=== PATIENT | male | born 1950 | race Caucasian/White ===

== ENCOUNTER 2024-10-05 06:08 | Day surgery (SDC) | payer MEDICARE, OTHER ==
[~2024-10-05] VITALS: Ht 188 cm; Wt 97.2 kg
[2024-10-05] VITALS (12 sets, daily range): BP systolic 117–135; BP diastolic 59–66; PULSE 63–86; RESP 12–19; TEMP 97.6; O2SAT 99–100
[2024-10-05] MEDS: tranexamic acid 1gm/0.7% sal. 100 ML IV ONE (05:30)
[2024-10-05] MEDS: ceFAZolin 2gm in dextrose, iso 50 ML IV ONE (05:30)
[~2024-10-05 06:08] MED LIST: ASPI81TA52 PO; ATOR40TA72 PO; BUTA1CAP44 PO; CELE-127 PO; DILT-94 PO; DOCU-148 PO; FLUT15.815; HYDR-3968 PO; MULT-1249 PO; PANT40TA54 PO; PREG75CA76 PO; RIZA-7 PO; TIZA-205 PO; TOPI200T16 PO; ZOLP12.570 PO
[2024-10-05] MEDS: famotidine 20mg tablet PO ONE (06:53)
[2024-10-05] MEDS: ringers solution, lacted 1,000 ML IV SCH ×2 (06:55→10:07)
[2024-10-05] MEDS: oxymetazoline 15 ML nasal spray NS ONE (06:55)
[2024-10-05] MEDS ORDERED: methylPREDNISolone acetate 80mg/ml inj**IM only ONE (07:09)
[2024-10-05] MEDS ORDERED: epiNEPHrine 1 mg/ml 30ml MDV ONE (07:09)
[2024-10-05] MEDS ORDERED: LIDOcaine 1% w/EPI 1:100,000 inj. MDV 50 ML VIAL ONE (07:09)
[2024-10-05] MEDS ORDERED: cocaine 4% topical solution 4ml bottle ONE (07:09)
[2024-10-05] MEDS ORDERED: mupirocin 2% ointment 22GM ONE (07:10)
[2024-10-05] MEDS ORDERED: oxymetazoline 15 ML nasal spray NS ONE (07:10)
[2024-10-05] MEDS ORDERED: Thrombin (Bovine) 5,000 unit vial TP ONE (07:10)
[2024-10-05] MEDS ORDERED: sevoflurane 250ml liquid IH ONE (08:08)
[2024-10-05] MEDS ORDERED: fentaNYL/PF 50MCG/1 ML 2ML syringe ONE (08:11)
[2024-10-05] MEDS ORDERED: midazolam 1 mg/ML 2ml injection ONE (08:11)
[2024-10-05] MEDS ORDERED: propofol inj 20 ML IV ONE ×2 (08:12→09:51)
[2024-10-05] MEDS ORDERED: LIDOcaine 2% (20mg/ml) 5ml vial ONE (08:15)
[2024-10-05] MEDS ORDERED: labetalol 20mg/4ml (5mg/ml) syringe IV PRN (08:20)
[2024-10-05] MEDS ORDERED: morphine 2 MG/ML inj. syringe IV PRN (08:20)
[2024-10-05] MEDS ORDERED: meperidine/PF 25mg/ml syringe IV PRN ×3 (08:20)
[2024-10-05] MEDS ORDERED: proCHLORperazine 10 MG/2 ml inj IV PRN (08:20)
[2024-10-05] MEDS ORDERED: enalaprilat 1.25mg/ml 2ml vial IV PRN (08:20)
[2024-10-05] MEDS ORDERED: ondansetron/PF 4mg/2ml inj IV PRN (08:20)
[2024-10-05] MEDS ORDERED: morphine 4 MG/ML inj SYRINge IV PRN (08:20)
[2024-10-05] MEDS ORDERED: BUPIVAcaine 0.5% inj/PF 30 ML ONE (09:43)
[2024-10-05] MEDS ORDERED: rocuronium 10mg/ml inj IV ONE (09:51)
[2024-10-05] MEDS ORDERED: acetaminophen 1,000mg/100ml IV 100 ML IV ONE (10:02)
[2024-10-05] MEDS: BUPIVAcaine 0.5% inj/PF 30 ml vial IJ ONE (10:14)
[2024-10-05] MEDS: salt irrigation nasal spray 45 ML SPRAY NS PRN (11:35)
== END 2024-10-05 12:05 | disposition home or self-care (01) ==
LOC: PAS 06:08
PROVIDERS: ATTEND Otolaryngology
DX: J34.3 Hypertrophy of nasal turbinates (principal); J32.9 Chronic sinusitis, unspecified; J34.89 Other specified disorders of nose and nasal sinuses; Z79.899 Other long term (current) drug therapy; E78.5 Hyperlipidemia, unspecified; G43.909 Migraine, unspecified, not intractable, without status migrainosus; Z98.890 Other specified postprocedural states
CPT/HCPCS: 30140; 31240; 31267; 61782; 82948; 93005; 93306; A4618; A6402; A7000; J0131; J0171; J0665; J0690; J1100; J2003; J2250; J2405; J2704; J2710; J3010; J3490; J7030; J7040; J7120; Z7506; Z7508; Z7512; Z7610; A6449; J1010